=== PATIENT | male | born 1955 | race Two or more races ===

== ENCOUNTER 2017-05-19 15:21 | Emergency (ER) | payer MEDICAID ==
[~2017-05-19] VITALS: Ht 175.3 cm; Wt 104.3 kg
[2017-05-19] MEDS ORDERED: cloNIDine HCL 0.1 MG TAB ONE (15:24)
[2017-05-19] MEDS ORDERED: cloNIDine HCL 0.1 MG TAB PO ONE (15:30)
[2017-05-19 15:32] VITALS: BP 195/105
== END 2017-05-19 18:53 | disposition left against medical advice (07) ==
LOC: ER 15:33
DX: I10 Essential (primary) hypertension (principal); Z53.21 Procedure and treatment not carried out due to patient leaving prior to being seen by health care provider
CPT/HCPCS: 93005